=== PATIENT | female | born 1970 | race Caucasian/White ===

== ENCOUNTER 2021-08-12 14:51 | Emergency (ER) | payer OTHER, SELFPAY ==
[2021-08-12 15:09] VITALS: BP 159/75; PULSE 85; RESP 22; TEMP 37; O2SAT 96; BMI 63.7
--- NOTE | 2021-08-12 16:20 | ED.GENADULT ---
HPI - General Adult General Time Seen by Provider: 16:19 Date Seen: 08/12/21 Chief complaint: Skin/Abscess/Foreign Body Stated complaint: skin infection Time Seen by Provider: 08/12/21 15:57 Source: patient History of Present Illness HPI narrative: 51-year-old female who comes in today with concern for right leg infection. This is been going on for several weeks. She was previously seen and cultures were done, she was on Augmentin. Finished that a couple of days ago and started having some increased pain and swelling and so called the clinic which referred her to the emergency department. Patient has no fever, chills, nausea, vomiting. She does have some diarrhea but says that is not unusual for her. She denies any chest pain or shortness of breath. Denies any urinary symptoms. Related Data Home Medications Medication Instructions Recorded Confirmed atorvastatin 40 mg tablet mg 08/12/21 blood sugar diagnostic (Contour 08/12/21 08/12/21 Next Test Strips) cimetidine 800 mg tablet mg 08/12/21 dulaglutide 3 mg/0.5 mL mg SUBCUT 08/12/21 subcutaneous pen injector (Trulicity) furosemide 20 mg tablet mg 08/12/21 insulin aspart U-100 100 unit/mL SUBCUT 08/12/21 (3 mL) subcutaneous pen (Novolog Flexpen U-100 Insulin aspart) insulin glargine U-300 conc 300 unit SUBCUT 08/12/21 unit/mL (1.5 mL) subcutaneous pen ([place] SoloStar U-300 Insulin) lisinopril 30 mg tablet mg 08/12/21 megestrol 40 mg tablet mg 08/12/21 metformin 1,000 mg tablet mg 08/12/21 olopatadine 0.2 % eye drops drp OPHTHALMIC (EYE) 08/12/21 pen needle, diabetic 32 gauge x 08/12/21 08/12/2132 (BD Shahnaz 2nd Gen Pen Needle) rizatriptan 10 mg disintegrating mg 08/12/21 tablet spironolactone 50 mg tablet mg 08/12/21 tramadol 50 mg tablet mg 08/12/21 Previous Rx's Medication Instructions Recorded amoxicillin 875 mg tablet 875 mg PO BID #20 tab 08/12/21 doxycycline hyclate 100 mg capsule 100 mg PO BID #20 cap 08/12/21 Allergies Allergy/AdvReac Type Severity Reaction Status Date / Time cephalexin Allergy Verified 08/12/21 15:18 Review of Systems Status of ROS: Reports: 10 or more systems reviewed and unremarkable except as noted in History and below Exam Const: Vital Signs, click to edit/add: Vital Signs - 24 hr 08/12/21 15:09 Temperature 98.6 F Pulse Rate [Right Femoral] 85 Respiratory Rate 22 Blood Pressure [Ri ght Upper Arm] 159/75 H Pulse Oximetry 96 Documenting provider has reviewed patient's vital signs: yes Common normals: no apparent distress, oriented x3, alert and well nourished HENMT: Common normals: normocephalic, head/scalp atraumatic, external ears normal and external nose normal Head and scalp: normocephalic and atraumatic Nose: external nose normal External ear: external ears normal Eye: Common normals: PERRL and conjunctivae normal Conjunctiva: conjunctiva(e) normal Pupil: PERRL Neck & C-Spine: Common normals: full ROM, no lymphadenopathy and supple Chest: Common normals: palpation of chest normal Resp: Common normals: normal respiratory effort and clear to auscultation bilaterally Auscultation: clear to auscultation bilaterally Cardio: Common normals: regular rate, regular rhythm and no murmurs Rate: regular rate Rhythm: regular rhythm GI: Common normals: Normal to inspection, nondistended, normoactive bowel sounds present, soft to palpation and non-tender Palpation: soft : Common normals: no CVA tenderness Bladder/kidney exam: no CVA tenderness Back & Pelvis: Common normals: no CVA tenderness and thoracic and lumbar spine normal to inspection Extremity: Common normals: full ROM Other: Bilateral lower extremity edema. On the right leg, posterior medial erythema and warmth with two areas of very superficial ulceration, mild serous drainage. No subcutaneous air or necrotic tissue. Neuro: Common normals: oriented x3, CN's II-XII intact bilaterally and no focal motor deficits Sensorium/orientation: alert Psych: Common normals: mental status grossly normal Skin: Common normals: no rashes or lesions noted General skin exam: no rashes or lesions noted Course Reevaluation(s) Reevaluation #1: I was able to review patient's prior culture of, the only bacteria that was cultured was the Enterococcus which is sensitive to ampicillin, streptomycin, and vancomycin. Time: 16:38 Reevaluation #2: Labs demonstrate mild leukopenia, CRP minimally elevated. This can be trended to make sure symptoms are improving although with patient's multiple medical problems, may be chronically slightly elevated. Vancomycin still infusing, patient will be discharged with doxycycline and amoxicillin. Time: 18:05 Vital Signs Vital signs: Initial Vital Signs Temperature 98.6 F 08/12/21 15:09 Temperature Source Temporal Artery Scan 08/12/21 15:09 Pulse Rate 85 08/12/21 15:09 Respiratory Rate 22 08/12/21 15:09 Blood Pressure 159/75 H 08/12/21 15:09 Blood Pressure Mean 103 08/12/21 15:09 Blood Pressure Position Sitting 08/12/21 15:09 Pulse Oximetry 96 08/12/21 15:09 Oxygen Delivery Method 08/12/21 15:09 Vital Signs Temperature 98.6 F 08/12/21 15:09 Pulse Rate 85 08/12/21 15:09 Respiratory Rate 22 08/12/21 15:09 Blood Pressure 159/75 H 08/12/21 15:09 Pulse Oximetry 96 08/12/21 15:09 Temperature 98.6 F 08/12/21 15:09 Pulse Rate 85 08/12/21 15:09 Respiratory Rate 22 08/12/21 15:09 Blood Pressure 159/75 H 08/12/21 15:09 Pulse Oximetry 96 08/12/21 15:09 Medical Decision Making MDM Narrative Medical decision making narrative: Patient seen and examined, prior records are reviewed. Differential diagnosis includes but not limited to cellulitis, abscess, necrotizing soft tissue infection, osteomyelitis, dermatitis. Patient with right leg pain and swelling, at cultures done in clinic showed Cornybacter, Enterococcus. Will try to get the cultures and sensitivities. Vancomycin initiated and labs ordered. No systemic signs of infection or sepsis. No subcutaneous air or rapid progression of redness to suggest necrotizing infection. No areas of flocculence or increased tenderness or discoloration to suggest abscess. Osteomyelitis unlikely at this point, if fails to improve as expected, consider further evaluation for this. Medical Records Medical records reviewed: Yes I reviewed the patient's medical records Lab Data Lab results reviewed: Yes I reviewed the patient's lab results Labs: Lab Results 08/12/21 08/12/21 Range/Units 16:58 16:58 WBC 3.20 L (4.50-11.00) K/uL RBC 3.73 L (4.00-5.20) m/uL Hgb 10.1 L (12.0-16.0) gm/dL Hct 32.8 L (33.0-51.0) % MCV 88 (80-100) fL MCH 27 (26-34) pg MCHC 31 L (32-36) gm/dL RDW Coeff of Anika 16.3 H (11.5-15.5) % Plt Count 106 L (140-440) K/uL Neut % (Auto) 70.0 (42.0-72.0) % Lymph % (Auto) 14.7 L (20-44) % [place] % (Auto) 8.8 (0.0-11.0) % Eos % (Auto) 5.6 (0.0-7.0) % Baso % (Auto) 0.6 (0.0-3.0) % Neut # (Auto) 2.20 (1.7-7.0) K/uL Lymph # (Auto) 0.50 L (0.90-2.90) K/uL [place] # (Auto) 0.30 (0.00-0.90) K/UL Eos # (Auto) 0.20 (0.00-0.50) K/uL Baso # (Auto) 0.00 (0.00-0.30) K/uL Abs Immat Gran (auto) 0.01 (0.00-0.30) K/uL Sodium 137 (135-149) mmol/L Potassium 4.8 (3.6-5.1) mmol/L Chloride 101 (96-114) mmol/L Carbon Dioxide 27 (20-32) mmol/L BUN 13 (7-30) mg/dL Creatinine 0.8 (0.5-1.5) mg/dL Estimated Creat Clear 72.65 Glucose 180 H (60-115) mg/dL Calcium 9.4 (8.4-10.6) mg/dL C-Reactive Protein 2.0 H (0.5-1.0) mg/dL Discharge Plan Discharge Clinical Impression: Cellulitis Patient Disposition: Home, Self-Care Condition: Stable Instructions: Cellulitis (ED) Activity Level: No Restrictions Discharge Diet: Diabetic Prescriptions: New amoxicillin 875 mg tablet 875 mg PO BID Qty: 20 0RF doxycycline hyclate 100 mg capsule 100 mg PO BID Qty: 20 0RF No Action atorvastatin 40 mg tablet 0RF Label Comments: TAKE 1 TABLET BY MOUTH AT BEDTIME (DME) Contour Next Test Strips Strip MISCELLANEOUS 0RF cimetidine 800 mg tablet 0RF tramadol 50 mg tablet 0RF Label Comments: TAKE 1 TABLET BY MOUTH EVERY 6 HOURS NEEDED FOR PAIN TAKE LEAST AMOUNT POSSIBLE rizatriptan 10 mg tablet,disintegrating 0RF Label Comments: DISSOLVE 1 TABLET IN MOUTH EVERY 2 HOURS NEEDED FOR MIGRAINE HEADACHE, MAX DOSE OF 30 MG PER 24 HOURS metformin 1,000 mg tablet 0RF Label Comments: TAKE 1 TABLET BY MOUTH TWICE DAILY WITH MEALS megestrol 40 mg tablet 0RF Label Comments: TAKE 1 TABLET BY MOUTH TWICE DAILY lisinopril 30 mg tablet 0RF Label Comments: TAKE 1 TABLET BY MOUTH ONCE DAILY furosemide 20 mg tablet 0RF spironolactone 50 mg tablet 0RF insulin aspart U-100 [Novolog Flexpen U-100 Insulin] 100 unit/mL (3 mL) insulin pen SUBCUT 0RF Label Comments: TAKE 15 UNITS WITH BREAKFAST AND LUNCH AND 20 UNITS WITH DINNER PLUS SLIDING SCALE UP TO 70 UNITS PER DAY olopatadine 0.2 % drops OPHTHALMIC (EYE) 0RF Label Comments: INSTILL 1 DROP INTO RIGHT EYE ONCE DAILY (DME) pen needle, diabetic [BD Shahnaz 2nd Gen Pen Needle] 32 gauge x 5/32 needle MISCELLANEOUS 0RF Label Comments: DIRECTED. REMOVE THE 2 COVERS ON THE INSULIN PEN NEEDLE BEFORE ADMINISTERING INSULIN DOSE. 6 PENS DAILY [place] SoloStar U-300 Insulin 300 unit/mL (1.5 mL) insulin pen SUBCUT 0RF Trulicity 3 mg/0.5 mL pen injector SUBCUT 0RF Label Comments: INJECT 3 MG SUBCUTANEOUSLY ONCE WEEKLY Stand Alone Forms: MyHealth Info Instructions
[2021-08-12 17:05] LABS: Basophils Percent Auto 0.6 % (0.0-3.0); Eosinophils Percent Auto 5.6 % (0.0-7.0); Hematocrit 32.8 % (33.0-51.0); Hemoglobin* 10.1 gm/dL (12.0-16.0); Immature Granulocytes Abs Auto 0.01 K/uL (0.00-0.30); Lymphocytes Percent Auto 14.7 % (20-44); Mean Corpuscular HGB Conc 31 gm/dL (32-36); Mean Corpuscular Hemoglobin 27 pg (26-34); Mean Corpuscular Volume 88 fL (80-100); Monocytes Percent Auto 8.8 % (0.0-11.0); Platelet Count* 106 K/uL (140-440); RDW Coefficient of Variation % 16.3 % (11.5-15.5); Red Blood Count 3.73 m/uL (4.00-5.20)
[2021-08-12 17:14] LABS: Slide Review Reflex No
[2021-08-12 17:18] LABS: Chloride* 101 mmol/L (96-114); Potassium* 4.8 mmol/L (3.6-5.1); Sodium* 137 mmol/L (135-149)
[2021-08-12 17:20] LABS: Creatinine* 0.8 mg/dL (0.5-1.5); Est. Creatinine Clearance* 72.65; Estimated Glomerular Filt Rate 89.71
[2021-08-12 17:21] LABS: Blood Urea Nitrogen* 13 mg/dL (7-30); Carbon Dioxide* 27 mmol/L (20-32); Glucose* 180 mg/dL (60-115)
[2021-08-12 17:22] LABS: Calcium* 9.4 mg/dL (8.4-10.6)
--- NOTE | 2021-08-12 19:25 | ED.NURSE ---
RLE wounds covered with vaseline gauze, telfa, and wrapped with kimberly wrap, per request
[2021-08-12 19:31] VITALS: BP 176/71; PULSE 77; RESP 16
== END 2021-08-12 19:32 | disposition home or self-care (01) ==
PROVIDERS: Emergency Provider Family Medicine
DX: L03.115 Cellulitis of right lower limb (principal); B95.2 Enterococcus as the cause of diseases classified elsewhere
CPT/HCPCS: 36415; 80048; 85025; 86140; 96365; 99284; J3370; J7120